=== PATIENT | male | born 1980 | race Caucasian/White ===

== ENCOUNTER 2017-09-04 18:10 | Emergency (ER) | payer OTHER ==
[2017-09-04] MEDS: LIDOCAINE W/EPINEPHRINE 1% 20ML VIAL SC (20:44)
[2017-09-04] MEDS: CEPHALEXIN 500 MG CAP PO (21:57)
== END 2017-09-04 22:01 | disposition home or self-care (01) ==
LOC: M ED 18:10
DX: S91.312A Laceration without foreign body, left foot, initial encounter (principal); S91.115A Laceration without foreign body of left lesser toe(s) without damage to nail, initial encounter; W23.0XXA Caught, crushed, jammed, or pinched between moving objects, initial encounter; Y92.018 Other place in single-family (private) house as the place of occurrence of the external cause
CPT/HCPCS: 73630

== ENCOUNTER → 2020-10-09 | Day surgery (SDC) | payer OTHER ==
[~2020-10-09] VITALS: Ht 182.9 cm; Wt 97.5 kg
[~2020-10-09] MED LIST: DULO1CAP6 PO; GABA-1171 PO; IBUP80TA PO; KEFL500C17 PO; LIDOCAINE 2% 100MG/5ML SDV (FOR ANES.) As Ordered ONE; NALT50TA4 PO; NS 1,000 ML IV ONE; propofoL 200 MG/20 ML VIAL As Ordered ONE
== END | disposition home or self-care (01) ==
LOC: M OPP 10:05
PROVIDERS: ATTEND Internal Medicine Gastroenterology
DX: R19.7 Diarrhea, unspecified (principal); Z53.8 Procedure and treatment not carried out for other reasons; Z20.828 Contact with and (suspected) exposure to other viral communicable diseases; Z01.812 Encounter for preprocedural laboratory examination

== ENCOUNTER → 2020-11-20 | Outpatient (REF) ==
[~2020-11-20] MED LIST changes: -LIDOCAINE 2% 100MG/5ML SDV (FOR ANES.) As Ordered ONE; -NS 1,000 ML IV ONE; -propofoL 200 MG/20 ML VIAL As Ordered ONE
--- NOTE | 2020-11-20 12:09 | REP ---
INDICATION: SOB, PAIN INJURY COMPARISON: None. TECHNIQUE: PA and lateral. FINDINGS: The mediastinum and cardiac silhouette are normal. The lung chavarria are clear and without acute consolidation, effusion, or pneumothorax. The skeletal structures are intact and normal. IMPRESSION: No acute cardiopulmonary process. <Electronically signed by Wilfrid Younger > 11/20/20 [id number]
--- NOTE | 2020-11-20 12:10 | REP ---
INDICATION: SOB, PAIN INJURY COMPARISON: None. TECHNIQUE: AP, lateral, bilateral oblique views left foot. FINDINGS: The osseous structures and joint spaces are intact and without acute fracture or dislocation. Old healed fracture involving the 4th proximal phalanx noted. There is no evidence for acute fracture or dislocation. Surrounding soft tissues are unremarkable. No subcutaneous emphysema or radiodense foreign body. IMPRESSION: Old healed fracture of the 4th proximal phalanx. No acute fracture or dislocation. <Electronically signed by Wilfrid Younger > 11/20/20 [id number]
--- NOTE | 2020-11-20 12:28 | REP ---
INDICATION: SOB, PAIN INJURY. COMPARISON: None. TECHNIQUE: Four views each ankle FINDINGS: No acute fracture or destructive osseous lesion. The mortise is intact. Bilateral. There is a large plantar calcaneal heel spur on the right. There is a small retrocalcaneal heel spur on the left. IMPRESSION: Chronic changes as described above. <Electronically signed by Igor Villa > 11/20/20 [id number]
== END ==
LOC: M PLAIMG 11:23
PROVIDERS: ATTEND Internal Medicine
DX: Z00.00 Encounter for general adult medical examination without abnormal findings (principal)

== ENCOUNTER → 2023-07-13 | Outpatient (CLI) | payer OTHER ==
[2023-07-13 18:49] LABS: BASO # 0.1 10^3/uL (0.0-0.2); BASO % 0.8 % (0.0-1.0); EOS % 0.6 % (0.0-3.0); HEMATOCRIT 47.6 % (42.0-52.0); HEMOGLOBIN 15.7 g/dl (13.5-17.5); LYMPH # 1.3 10^3/uL (1.5-5.0); LYMPH % 20.3 % (24.0-44.0); MEAN CORPUSCULAR HEMOGLOBIN 31.3 pg (27.0-33.0); MEAN CORPUSCULAR VOLUME 94.8 fl (80.0-96.0); MONO # 0.8 10^3/uL (0.0-0.8); MONO % 13.2 % (2.0-8.0); NEUTROPHILS % 64.8 % (36.0-66.0); PLATELET COUNT, AUTOMATED 176 10^3/uL (150-450); RED BLOOD COUNT 5.02 10^6/uL (4.30-6.10); WHITE BLOOD COUNT 6.2 10^3/uL (4.0-10.0)
[2023-07-13 18:57] LABS: ERYTHROCYTE SEDIMENTATION RATE 46 mm/hr (0-15)
[2023-07-13 19:19] LABS: ALBUMIN 3.8 G/DL (3.2-5.2); ALKALINE PHOSPHATASE 104 U/L (46-116); ALT/SGPT 68 U/L (7.0-40); AST/SGOT 33 U/L (<34); BILIRUBIN,TOTAL 0.5 MG/DL (0.3-1.2); BLOOD UREA NITROGEN 17 MG/DL (9-23); CALCIUM LEVEL 9.3 MG/DL (8.5-10.1); CARBON DIOXIDE LEVEL 28 MMOL/L (20-31); CHLORIDE LEVEL 102 MMOL/L (98-107); GLOMERULAR FILTRATION RATE > 60.0 (>60); GLUCOSE, FASTING 115 MG/DL (60-100); POTASSIUM SERUM 4.2 MMOL/L (3.5-5.1); SODIUM LEVEL 137 MMOL/L (136-145); TOTAL PROTEIN 7.2 G/DL (5.7-8.2)
[2023-07-15 19:09] LABS: IgG P18 AB Absent (.); IgG P23 AB Absent (.); IgG P28 AB Absent (.); IgG P30 AB Absent (.); IgG P39 AB Absent (.); IgG P41 AB Absent (.); IgG P45 AB Absent (.); IgG P58 AB Absent (.); IgG P66 AB Absent (.); IgG P93 AB Absent (.); IgM P23 AB Present (.); IgM P39 AB Absent (.); IgM P41 AB Absent (.); LYME IgG WB INTERPRETATION Negative (.); LYME IgM WB INTERPRETATION Negative (.)
== END ==
LOC: M WUC 10:52
PROVIDERS: ATTEND Physician Assistant
DX: A26.0 Cutaneous erysipeloid (principal)